=== PATIENT | male | born 1945 | race Caucasian/White ===

== ENCOUNTER → 2017-06-18 | Outpatient (REF) | payer MEDICARE, OTHER ==
[2017-06-18 18:56] LABS: FOLATE 7.1 NG/ML (>5.4); VITAMIN B12 LEVEL 343 PG/ML (247-911)
[2017-06-18 19:07] LABS: TOTAL PROTEIN 7.2 GM/DL (6.4-8.2)
[2017-06-19 13:23] LABS: ALBUMIN 4.07 GM/DL (3.29-5.55); ALBUMIN % 56.5 % (55.8-66.1); GAMMA GLOBULIN % 16.2 % (11.1-18.8)
[2017-06-26 00:06] LABS: VITAMIN E LEVEL 8.1 mg/L (5.3-17.5)
== END ==
LOC: M LABNEURO 17:19
PROVIDERS: ATTEND Psychiatry & Neurology Neurology
DX: Z13.29 Encounter for screening for other suspected endocrine disorder (principal); R20.0 Anesthesia of skin; Z79.899 Other long term (current) drug therapy

== ENCOUNTER → 2018-01-16 | Outpatient (REF) | payer MEDICARE, OTHER ==
[2018-01-16 18:34] LABS: BLOOD UREA NITROGEN 15 MG/DL (7-18)
[2018-01-16 18:34] LABS: CREATININE FOR GFR 1.15 MG/DL (0.70-1.30); GLOMERULAR FILTRATION RATE > 60.0 (>42)
== END ==
LOC: M LABNEURO 13:37
DX: I10 Essential (primary) hypertension (principal)
CPT/HCPCS: 82565

== ENCOUNTER → 2019-02-13 | Outpatient (REF) | payer MEDICARE, OTHER | LOC: M LAB REF 13:48 | PROVIDERS: ATTEND Physician Assistant | DX: D48.5 Neoplasm of uncertain behavior of skin (principal) ==